=== PATIENT | male | born 1970 | race Two or more races ===

== ENCOUNTER → 2016-08-05 | Outpatient (REF) | payer BC ==
[2016-08-05 15:27] LABS: FOLATE > 24.0 NG/ML (>5.4); VITAMIN B12 LEVEL 496 PG/ML (247-911)
== END ==
LOC: M LABNEURO 13:10
PROVIDERS: ATTEND Psychiatry & Neurology Neurology
DX: G43.909 Migraine, unspecified, not intractable, without status migrainosus (principal); Z11.59 Encounter for screening for other viral diseases; R20.9 Unspecified disturbances of skin sensation; Z13.29 Encounter for screening for other suspected endocrine disorder; E55.9 Vitamin D deficiency, unspecified; Z13.0 Encounter for screening for diseases of the blood and blood-forming organs and certain disorders involving the immune mechanism

== ENCOUNTER → 2016-08-24 | Outpatient (REF) | payer BC | LOC: M LAB REF 12:17 | PROVIDERS: ATTEND Internal Medicine | DX: G52.0 Disorders of olfactory nerve (principal) ==

== ENCOUNTER → 2017-03-16 | Outpatient (REF) | payer BC | LOC: M LAB REF 13:26 | PROVIDERS: ATTEND Internal Medicine | DX: G52.0 Disorders of olfactory nerve (principal) ==

== ENCOUNTER → 2019-06-12 | Outpatient (REF) | payer BC | LOC: M LAB REF 17:31 | PROVIDERS: ATTEND Internal Medicine | DX: J02.9 Acute pharyngitis, unspecified (principal) ==

== ENCOUNTER → 2020-08-07 | Outpatient (REF) | payer BC | LOC: M LAB REF 12:11 | PROVIDERS: ATTEND Internal Medicine | DX: K59.1 Functional diarrhea (principal) ==

== ENCOUNTER → 2020-09-18 | Outpatient (REF) | payer BC ==
[2020-09-18 17:35] LABS: RSV AMPLIFICATION NEGATIVE (NEGATIVE)
== END ==
LOC: M SFHCPLAZ 16:39
PROVIDERS: ATTEND Internal Medicine Infectious Disease
DX: R09.81 Nasal congestion (principal)

== ENCOUNTER → 2020-10-29 | Outpatient (REF) | payer BC ==
[2020-10-29 14:47] LABS: RSV AMPLIFICATION NEGATIVE (NEGATIVE)
== END ==
LOC: M SFHCPLAZ 13:41
PROVIDERS: ATTEND Internal Medicine Infectious Disease
DX: R09.81 Nasal congestion (principal)

== ENCOUNTER → 2021-01-29 | Outpatient (REF) | payer BC ==
[2021-01-29 12:31] LABS: LDH LACTATE DEHYDROGENASE 188 U/L (87-241); TOTAL PROTEIN 7.6 GM/DL (6.4-8.2)
[2021-01-30 10:38] LABS: ALBUMIN % 60.2 % (55.8-66.1); ALPHA-1-GLOBULIN % 3.7 % (2.9-4.9); BETA-1-GLOBULINS % 5.8 % (4.7-7.2); BETA-2-GLOBULINS % 5.6 % (3.2-6.5); GAMMA GLOBULIN % 14.7 % (11.1-18.8)
[2021-01-30 10:39] LABS: ALBUMIN 4.58 GM/DL (3.29-5.55); ALPHA-1-GLOBULINS 0.28 GM/DL (0.17-0.41); ALPHA-2-GLOBULINS 0.76 GM/DL (0.42-0.99); BETA-1-GLOBULINS 0.44 GM/DL (0.28-0.60); BETA-2-GLOBULINS 0.43 GM/DL (0.19-0.55); GAMMA GLOBULINS 1.12 GM/DL (0.65-1.58)
[2021-02-18 17:10] LABS: HCG SERUM TUMOR MARKER QUANT < 1 mIU/mL (0-3)
== END ==
LOC: M LAB REF 11:20
PROVIDERS: ATTEND Internal Medicine
DX: D38.3 Neoplasm of uncertain behavior of mediastinum (principal); R91.8 Other nonspecific abnormal finding of lung field

== ENCOUNTER → 2021-02-02 | Outpatient (CLI) | payer BC ==
--- NOTE | 2021-02-03 13:16 | REP ---
INDICATION: DIAGNOSING 2 MEDIASTINAL MASSES. COMPARISON: None. TECHNIQUE: Following the injection of 8.89 mCi of FDG-18 scans were obtained from the head through the mid thighs. FINDINGS: The lobulated mass in the anterior mediastinum is markedly hypermetabolic with a maximum SUV of 16.96. No other area of abnormal uptake is identified. IMPRESSION: Abnormal examination with increased uptake in the lobulated mass in the anterior mediastinum consistent with tumor. No other area of abnormal uptake is identified. <Electronically signed by Dennys Selby > 02/03/21 [id number]
== END ==
LOC: M PLARAD 15:21
PROVIDERS: ATTEND Internal Medicine
DX: D38.3 Neoplasm of uncertain behavior of mediastinum (principal)
CPT/HCPCS: 78815; A9552

== ENCOUNTER 2021-05-06 18:34 | Observation (INO) | payer BC ==
[~2021-05-06] VITALS: Ht 182.9 cm; Wt 100.0 kg
[2021-05-06] MEDS ORDERED: ACETAMINOPHEN TAB 650MG DOSE (2X325MG) PO PRN (19:05)
[2021-05-06 19:36] VITALS: BP 123/72
[2021-05-06] MEDS ORDERED: OMEP1CAP73 PO (20:11)
[2021-05-06] MEDS ORDERED: BACT800T5 PO (20:11)
[2021-05-06] MEDS ORDERED: ACYC1TAB PO (20:11)
[2021-05-06] MEDS ORDERED: RAMI1CAP22 PO (20:11)
[2021-05-06] MEDS ORDERED: B-12100021 PO (20:11)
[2021-05-06] MEDS ORDERED: GABA-282 PO (20:11)
[2021-05-06] MEDS ORDERED: SENN-80 PO (20:11)
[2021-05-06] MEDS ORDERED: ONDA-84 PO (20:11)
[2021-05-06] MEDS ORDERED: ATOR1TAB19 PO (20:11)
[2021-05-06 20:12] LABS: HEMATOCRIT 31.7 % (42.0-52.0); HEMOGLOBIN 10.5 g/dl (13.5-17.5); MEAN CORPUSCULAR HEMOGLOBIN 30.1 pg (27.0-33.0); MEAN CORPUSCULAR HGB CONC 33.1 g/dl (32.0-36.5); MEAN CORPUSCULAR VOLUME 90.8 fl (80.0-96.0); PLATELET COUNT, AUTOMATED 248 10^3/uL (150-450); RED BLOOD COUNT 3.49 10^6/uL (4.30-6.10); WHITE BLOOD COUNT 12.3 10^3/uL (4.0-10.0)
[2021-05-06] MEDS ORDERED: HOME MED LIST COMPLETE! XX SCH (20:25)
[2021-05-06 20:26] LABS: BASOPHILS 2 % (0-1); LYMPHOCYTES 3 % (16-44); NEUTROPHILS 95 % (28-66); TOXIC VACUOLATION 1+
[2021-05-06 20:30] LABS: PLATELET ESTIMATE NORMAL (NORMAL)
[2021-05-06 20:37] LABS: ALBUMIN 3.4 GM/DL (3.2-5.2); ALT/SGPT 59 U/L (12-78); BILIRUBIN,TOTAL 0.4 MG/DL (0.2-1.0); BLOOD UREA NITROGEN 20 MG/DL (7-18); CALCIUM LEVEL 8.8 MG/DL (8.5-10.1); CARBON DIOXIDE LEVEL 25 MEQ/L (21-32); CHLORIDE LEVEL 101 MEQ/L (98-107); GLOMERULAR FILTRATION RATE > 60.0 (>56); GLUCOSE, FASTING 106 MG/DL (70-100); POTASSIUM SERUM 3.8 MEQ/L (3.5-5.1); SODIUM LEVEL 131 MEQ/L (136-145); TOTAL PROTEIN 6.9 GM/DL (6.4-8.2)
[2021-05-06 20:56] LABS: APPEARANCE, URINE CLEAR (CLEAR); BACTERIA, URINE AUTO NEGATIVE (NEGATIVE); BILIRUBIN, URINE AUTO NEGATIVE (NEGATIVE); BLOOD, URINE BLOOD NEGATIVE (NEGATIVE); COLOR, URINE YELLOW (YELLOW); GLUCOSE, URINE (UA) AUTO 1+ mg/dL (NEGATIVE); KETONE, URINE AUTO TRACE mg/dL (NEGATIVE); LEUKOCYTE ESTERASE, URINE AUTO NEGATIVE (NEGATIVE); MUCUS, URINE SMALL (NEGATIVE); NITRITE, URINE AUTO NEGATIVE (NEGATIVE); PROTEIN, URINE AUTO NEGATIVE (NEGATIVE); RBC, URINE AUTO 1 /HPF (0-3); SPECIFIC GRAVITY URINE AUTO 1.024 (1.002-1.035); SQUAMOUS EPITHELIAL CELL UR AU 0 /HPF (0-6); UROBILINOGEN, URINE AUTO 0.2 mg/dL (0.0-2.0); WBC, URINE AUTO 3 /HPF (0-3)
[2021-05-06] MEDS ORDERED: ALPRAZolam 0.25 MG TAB PO SCH (21:00)
[2021-05-06] MEDS: GABAPENTIN 300 MG CAP PO SCH (21:00)
[2021-05-06] MEDS ORDERED: SENNA 8.6 MG TAB (SENOKOT) PO SCH (21:00)
[2021-05-06] MEDS: ACYCLOVIR 200 MG CAPSULE PO SCH (21:00)
[2021-05-06] MEDS: PIPERACILLIN/TAZOBACTAM SOD 3.375 GM in D5W MINI-BAG PLUS 50 ML IV SCH (22:57)
[2021-05-06] MEDS: D5W/0.45% SODIUM CHLORIDE 1,000 ML IV SCH (22:58)
[2021-05-07] MEDS: PIPERACILLIN/TAZOBACTAM SOD 3.375 GM in D5W MINI-BAG PLUS 50 ML IV SCH ×2 (03:16→08:52)
[2021-05-07 07:49] VITALS: BP 113/75
[2021-05-07 08:18] LABS: HEMATOCRIT 28.5 % (42.0-52.0); HEMOGLOBIN 9.7 g/dl (13.5-17.5); MEAN CORPUSCULAR HEMOGLOBIN 30.1 pg (27.0-33.0); MEAN CORPUSCULAR VOLUME 88.5 fl (80.0-96.0); PLATELET COUNT, AUTOMATED 219 10^3/uL (150-450); RED BLOOD COUNT 3.22 10^6/uL (4.30-6.10); WHITE BLOOD COUNT 3.9 10^3/uL (4.0-10.0)
[2021-05-07] MEDS: GABAPENTIN 300 MG CAP PO SCH (08:51)
[2021-05-07] MEDS: ACYCLOVIR 200 MG CAPSULE PO SCH (08:52)
[2021-05-07 08:55] LABS: ALBUMIN 3.2 GM/DL (3.2-5.2); ALT/SGPT 50 U/L (12-78); BILIRUBIN,TOTAL 0.7 MG/DL (0.2-1.0); BLOOD UREA NITROGEN 13 MG/DL (7-18); CALCIUM LEVEL 8.7 MG/DL (8.5-10.1); CARBON DIOXIDE LEVEL 24 MEQ/L (21-32); CHLORIDE LEVEL 101 MEQ/L (98-107); CREATININE FOR GFR 0.61 MG/DL (0.70-1.30); GLOMERULAR FILTRATION RATE > 60.0 (>56); GLUCOSE, FASTING 101 MG/DL (70-100); POTASSIUM SERUM 3.8 MEQ/L (3.5-5.1); SODIUM LEVEL 134 MEQ/L (136-145); TOTAL PROTEIN 6.7 GM/DL (6.4-8.2)
[2021-05-07] MEDS ORDERED: ATORVASTATIN 10 MG TAB PO SCH (09:00)
[2021-05-07] MEDS ORDERED: ramipriL 1.25 MG CAP PO SCH (09:00)
[2021-05-07] MEDS ORDERED: OMEPRAZOLE 20MG CAP PO SCH (09:00)
[2021-05-07] MEDS ORDERED: ENOXAPARIN 40MG/0.4ML SYRINGE (J1650 PER 10MG) SC SCH (09:00)
[2021-05-07 09:04] LABS: PERCENT SATURATION 70.9 % (19.7-50.0)
[2021-05-07 10:14] LABS: BASO # 0.1 10^3/uL (0.0-0.2); BASO % 1.8 % (0.0-1.0); EOS % 0.5 % (0.0-3.0); LYMPH # 0.2 10^3/uL (1.5-5.0); LYMPH % 4.8 % (24.0-44.0); MONO # 0.1 10^3/uL (0.0-0.8); MONO % 2.5 % (2.0-8.0); NEUTROPHILS # 2.4 10^3/uL (1.5-8.5); NEUTROPHILS % 61.1 % (36.0-66.0)
[2021-05-07] MEDS: D5W/0.45% SODIUM CHLORIDE 1,000 ML IV SCH (10:58)
[2021-05-07] MEDS ORDERED: LEVO750T13 PO (12:00)
[2021-05-07 22:43] LABS: MAGNESIUM LEVEL 1.9 MG/DL (1.7-2.2)
== END 2021-05-07 12:50 | disposition home or self-care (01) ==
LOC: INTOOBSV 18:50 → M MS5PR 18:50
PROVIDERS: ADMIT Internal Medicine Infectious Disease; ATTEND Internal Medicine Infectious Disease
DX: D70.9 Neutropenia, unspecified (principal); E86.0 Dehydration; R79.89 Other specified abnormal findings of blood chemistry; R00.0 Tachycardia, unspecified; I10 Essential (primary) hypertension; E78.5 Hyperlipidemia, unspecified; C85.20 Mediastinal (thymic) large B-cell lymphoma, unspecified site; R10.9 Unspecified abdominal pain; R50.9 Fever, unspecified; R19.7 Diarrhea, unspecified; D64.9 Anemia, unspecified; G62.9 Polyneuropathy, unspecified; Z79.899 Other long term (current) drug therapy; Z79.2 Long term (current) use of antibiotics
CPT/HCPCS: 36415; 71046; 80053; 81001; 82728; 83550; 83735; 84145; 85025; 85027; 87040; 87086; 87798; 96372; 96374; 96376; J1650; J2543

== ENCOUNTER → 2021-05-09 | Outpatient (REF) | payer BC ==
[~2021-05-09] MED LIST: ACYC1TAB PO; ATOR1TAB19 PO; B-12100021 PO; BACT800T5 PO; GABA-282 PO; LEVO750T13 PO; OMEP1CAP73 PO; ONDA-84 PO; RAMI1CAP22 PO; SENN-80 PO
== END ==
LOC: M SFHCPLAZ 13:51
PROVIDERS: ATTEND Internal Medicine Infectious Disease
DX: D70.9 Neutropenia, unspecified (principal); R50.81 Fever presenting with conditions classified elsewhere

== ENCOUNTER 2021-05-11 13:45 | Outpatient (CLI) | payer BC ==
[~2021-05-11] VITALS: Ht 182.9 cm; Wt 94.0 kg
[~2021-05-11 13:45] MED LIST changes: +ALBUTEROL SULFATE 2.5 MG/0.5 ML INH NEB SOLN INH PRN; +EPINEPHrine INJ 1 MG/ML 1ML AMP IM PRN; +diphenhydrAMINE 50MG/ML VIAL (J1200) IV PRN; +methylPREDNISolone 125MG 2ML VIAL IV PRN
[2021-05-11 13:55] VITALS: BP 157/77
[2021-05-11] MEDS ORDERED: ALBUTEROL 90 MCG/ACT 8GM HFA INHALER INH PRN (14:15)
[2021-05-11] MEDS ORDERED: NS 1,000 ML IV SCH (14:15)
[2021-05-11] MEDS ORDERED: TIXAGEVIMAB/CILGAVIMAB (EVUSHELD) 150MG-150MG 3ML VIAL (EUA) IM ONE (14:15)
[2021-05-11 14:55] VITALS: BP 144/87
== END 2021-05-11 14:55 | disposition home or self-care (01) ==
LOC: M INFU 13:45
PROVIDERS: ATTEND Internal Medicine Infectious Disease
DX: C83.30 Diffuse large B-cell lymphoma, unspecified site (principal)

== ENCOUNTER → 2021-05-11 | Outpatient (CLI) | payer BC ==
[2021-05-11 13:45] LABS: HEMATOCRIT 30.5 % (42.0-52.0); MEAN CORPUSCULAR HGB CONC 32.8 g/dl (32.0-36.5); MEAN CORPUSCULAR VOLUME 91.6 fl (80.0-96.0); PLATELET COUNT, AUTOMATED 117 10^3/uL (150-450); RED BLOOD COUNT 3.33 10^6/uL (4.30-6.10); WHITE BLOOD COUNT 2.1 10^3/uL (4.0-10.0)
[2021-05-11 14:21] LABS: ATYPICAL LYMPH 6 % (0-5); EOSINOPHILS 1 % (0-3); LYMPHOCYTES 33 % (16-44); MONOCYTES 39 % (0-5); NEUTROPHILS 16 % (28-66)
[2021-05-11 14:22] LABS: ALBUMIN 3.6 GM/DL (3.2-5.2); ALT/SGPT 36 U/L (12-78); BILIRUBIN,TOTAL 0.3 MG/DL (0.2-1.0); BLOOD UREA NITROGEN 12 MG/DL (7-18); CALCIUM LEVEL 9.7 MG/DL (8.5-10.1); CARBON DIOXIDE LEVEL 28 MEQ/L (21-32); CHLORIDE LEVEL 104 MEQ/L (98-107); CREATININE FOR GFR 0.67 MG/DL (0.70-1.30); GLOMERULAR FILTRATION RATE > 60.0 (>56); GLUCOSE, FASTING 98 MG/DL (70-100); MAGNESIUM LEVEL 2.3 MG/DL (1.8-2.4); OVALOCYTES 2+; POTASSIUM SERUM 4.5 MEQ/L (3.5-5.1); SODIUM LEVEL 139 MEQ/L (136-145); TEAR DROP CELLS 1+; TOTAL PROTEIN 6.8 GM/DL (6.4-8.2)
[2021-05-11 14:24] LABS: PLATELET ESTIMATE DECREASED (NORMAL)
== END ==
LOC: M PLALAB 08:42
DX: C85.80 Other specified types of non-Hodgkin lymphoma, unspecified site (principal)

== ENCOUNTER → 2021-05-13 | Outpatient (CLI) | payer BC ==
[~2021-05-13] MED LIST changes: -ALBUTEROL SULFATE 2.5 MG/0.5 ML INH NEB SOLN INH PRN; -EPINEPHrine INJ 1 MG/ML 1ML AMP IM PRN; -diphenhydrAMINE 50MG/ML VIAL (J1200) IV PRN; -methylPREDNISolone 125MG 2ML VIAL IV PRN
[2021-05-13 09:57] LABS: HEMATOCRIT 31.9 % (42.0-52.0); HEMOGLOBIN 10.4 g/dl (13.5-17.5); MEAN CORPUSCULAR HEMOGLOBIN 30.7 pg (27.0-33.0); MEAN CORPUSCULAR HGB CONC 32.6 g/dl (32.0-36.5); MEAN CORPUSCULAR VOLUME 94.1 fl (80.0-96.0); RED BLOOD COUNT 3.39 10^6/uL (4.30-6.10); WHITE BLOOD COUNT 4.5 10^3/uL (4.0-10.0)
[2021-05-13 10:17] LABS: PLATELET COUNT, AUTOMATED 70 10^3/uL (150-450)
[2021-05-13 10:21] LABS: ATYPICAL LYMPH 2 % (0-5); BASOPHILS 1 % (0-1); EOSINOPHILS 1 % (0-3); LYMPHOCYTES 16 % (16-44); METAMYELOCYTES 1 % (0-0); MONOCYTES 14 % (0-5); MYELOCYTES 1 % (0-0); NEUTROPHILS 55 % (28-66); PLATELET ESTIMATE DECREASED (NORMAL)
[2021-05-13 10:22] LABS: TEAR DROP CELLS 1+
[2021-05-13 10:23] LABS: OVALOCYTES 1+
== END ==
LOC: M LAB 09:25
PROVIDERS: ATTEND Internal Medicine Infectious Disease
DX: D70.9 Neutropenia, unspecified (principal)

== ENCOUNTER → 2021-05-28 | Outpatient (CLI) | payer BC ==
[2021-05-28 11:26] LABS: HEMATOCRIT 31.5 % (42.0-52.0); HEMOGLOBIN 10.8 g/dl (13.5-17.5); MEAN CORPUSCULAR HEMOGLOBIN 32.9 pg (27.0-33.0); MEAN CORPUSCULAR HGB CONC 34.3 g/dl (32.0-36.5); PLATELET COUNT, AUTOMATED 367 10^3/uL (150-450); RED BLOOD COUNT 3.28 10^6/uL (4.30-6.10); WHITE BLOOD COUNT 3.6 10^3/uL (4.0-10.0)
[2021-05-28 12:16] LABS: ALT/SGPT 48 U/L (12-78); BILIRUBIN,TOTAL 0.3 MG/DL (0.2-1.0); BLOOD UREA NITROGEN 17 MG/DL (7-18); CARBON DIOXIDE LEVEL 31 MEQ/L (21-32); CHLORIDE LEVEL 102 MEQ/L (98-107); CREATININE FOR GFR 0.66 MG/DL (0.70-1.30); GLOMERULAR FILTRATION RATE > 60.0 (>56); GLUCOSE, FASTING 105 MG/DL (70-100); POTASSIUM SERUM 4.4 MEQ/L (3.5-5.1); SODIUM LEVEL 137 MEQ/L (136-145); TOTAL PROTEIN 7.1 GM/DL (6.4-8.2)
[2021-05-28 14:16] LABS: ANISOCYTOSIS 2+; ATYPICAL LYMPH 1 % (0-5); BASOPHILS 2 % (0-1); EOSINOPHILS 3 % (0-3); LYMPHOCYTES 10 % (16-44); MONOCYTES 2 % (0-5); NEUTROPHILS 81 % (28-66); PLATELET ESTIMATE NORMAL (NORMAL)
[2021-05-28 14:17] LABS: TEAR DROP CELLS 1+
== END ==
LOC: M WUC 08:35
DX: C85.80 Other specified types of non-Hodgkin lymphoma, unspecified site (principal)

== ENCOUNTER → 2021-06-01 | Outpatient (CLI) | payer BC ==
[2021-06-01 16:15] LABS: ALBUMIN 3.8 GM/DL (3.2-5.2); ALT/SGPT 44 U/L (12-78); BILIRUBIN,TOTAL 0.1 MG/DL (0.2-1.0); BLOOD UREA NITROGEN 16 MG/DL (7-18); CALCIUM LEVEL 9.2 MG/DL (8.5-10.1); CARBON DIOXIDE LEVEL 30 MEQ/L (21-32); CHLORIDE LEVEL 103 MEQ/L (98-107); GLOMERULAR FILTRATION RATE > 60.0 (>56); GLUCOSE, FASTING 115 MG/DL (70-100); MAGNESIUM LEVEL 1.9 MG/DL (1.8-2.4); POTASSIUM SERUM 3.9 MEQ/L (3.5-5.1); SODIUM LEVEL 139 MEQ/L (136-145)
[2021-06-01 16:16] LABS: HEMATOCRIT 29.6 % (42.0-52.0); HEMOGLOBIN 9.6 g/dl (13.5-17.5); MEAN CORPUSCULAR HEMOGLOBIN 31.9 pg (27.0-33.0); MEAN CORPUSCULAR HGB CONC 32.4 g/dl (32.0-36.5); MEAN CORPUSCULAR VOLUME 98.3 fl (80.0-96.0); PLATELET COUNT, AUTOMATED 150 10^3/uL (150-450); RED BLOOD COUNT 3.01 10^6/uL (4.30-6.10); WHITE BLOOD COUNT 4.2 10^3/uL (4.0-10.0)
[2021-06-01 20:21] LABS: ATYPICAL LYMPH 8 % (0-5); BASOPHILS 7 % (0-1); EOSINOPHILS 3 % (0-3); LYMPHOCYTES 36 % (16-44); MONOCYTES 17 % (0-5); MYELOCYTES 2 % (0-0); NEUTROPHILS 15 % (28-66)
[2021-06-01 20:22] LABS: ANISOCYTOSIS 1+; PLATELET ESTIMATE NORMAL (NORMAL)
== END ==
LOC: M WUC 10:39
DX: C85.80 Other specified types of non-Hodgkin lymphoma, unspecified site (principal)

== ENCOUNTER 2021-06-03 14:34 | Outpatient (CLI) | payer BC ==
[~2021-06-03] VITALS: Ht 182.9 cm; Wt 94.0 kg
[2021-06-03 14:25] VITALS: BP 141/93
[~2021-06-03 14:34] MED LIST changes: +ALBUTEROL 90 MCG/ACT 8GM HFA INHALER INH PRN; +ALBUTEROL SULFATE 2.5 MG/0.5 ML INH NEB SOLN INH PRN; +EPINEPHrine INJ 1 MG/ML 1ML AMP IM PRN; +NS 1,000 ML IV SCH; +TIXAGEVIMAB/CILGAVIMAB (EVUSHELD) 150MG-150MG 3ML VIAL (EUA) IM NO SITE ONE; +diphenhydrAMINE 50MG/ML VIAL (J1200) IV PRN; +methylPREDNISolone 125MG 2ML VIAL IV PRN
[2021-06-03 15:45] VITALS: BP 138/93
== END 2021-06-03 15:45 | disposition home or self-care (01) ==
LOC: M INFU 14:34
PROVIDERS: ATTEND Internal Medicine Infectious Disease
DX: C85.80 Other specified types of non-Hodgkin lymphoma, unspecified site (principal)

== ENCOUNTER → 2021-06-22 | Outpatient (CLI) | payer BC ==
[~2021-06-22] MED LIST changes: -ALBUTEROL 90 MCG/ACT 8GM HFA INHALER INH PRN; -ALBUTEROL SULFATE 2.5 MG/0.5 ML INH NEB SOLN INH PRN; -EPINEPHrine INJ 1 MG/ML 1ML AMP IM PRN; -NS 1,000 ML IV SCH; -TIXAGEVIMAB/CILGAVIMAB (EVUSHELD) 150MG-150MG 3ML VIAL (EUA) IM NO SITE ONE; -diphenhydrAMINE 50MG/ML VIAL (J1200) IV PRN; -methylPREDNISolone 125MG 2ML VIAL IV PRN
[2021-06-22 12:31] LABS: HEMATOCRIT 28.1 % (42.0-52.0); HEMOGLOBIN 9.2 g/dl (13.5-17.5); MEAN CORPUSCULAR HEMOGLOBIN 33.8 pg (27.0-33.0); MEAN CORPUSCULAR HGB CONC 32.7 g/dl (32.0-36.5); MEAN CORPUSCULAR VOLUME 103.3 fl (80.0-96.0); PLATELET COUNT, AUTOMATED 167 10^3/uL (150-450); RED BLOOD COUNT 2.72 10^6/uL (4.30-6.10); WHITE BLOOD COUNT 4.2 10^3/uL (4.0-10.0)
[2021-06-22 13:06] LABS: ALT/SGPT 35 U/L (12-78); BILIRUBIN,TOTAL 0.2 MG/DL (0.2-1.0); BLOOD UREA NITROGEN 12 MG/DL (7-18); CALCIUM LEVEL 9.7 MG/DL (8.5-10.1); CARBON DIOXIDE LEVEL 31 MEQ/L (21-32); CHLORIDE LEVEL 106 MEQ/L (98-107); CREATININE FOR GFR 0.63 MG/DL (0.70-1.30); GLOMERULAR FILTRATION RATE > 60.0 (>56); GLUCOSE, FASTING 84 MG/DL (70-100); MAGNESIUM LEVEL 1.9 MG/DL (1.8-2.4); POTASSIUM SERUM 4.2 MEQ/L (3.5-5.1); SODIUM LEVEL 140 MEQ/L (136-145); TOTAL PROTEIN 6.9 GM/DL (6.4-8.2)
[2021-06-22 13:43] LABS: ATYPICAL LYMPH 3 % (0-5); BASOPHILS 1 % (0-1); EOSINOPHILS 3 % (0-3); LYMPHOCYTES 20 % (16-44); METAMYELOCYTES 2 % (0-0); MONOCYTES 22 % (0-5); MYELOCYTES 4 % (0-0); NEUTROPHILS 36 % (28-66); PROMYELOCYTES 1 % (0-0)
[2021-06-22 13:44] LABS: ANISOCYTOSIS 1+; PLATELET ESTIMATE NORMAL (NORMAL)
== END ==
LOC: M WUC 11:04
PROVIDERS: ATTEND Internal Medicine Hematology & Oncology
DX: C85.80 Other specified types of non-Hodgkin lymphoma, unspecified site (principal)

== ENCOUNTER → 2021-06-26 | Outpatient (CLI) | payer BC ==
[2021-06-26 13:10] LABS: HEMATOCRIT 31.2 % (42.0-52.0); HEMOGLOBIN 10.3 g/dl (13.5-17.5); RED BLOOD COUNT 3.03 10^6/uL (4.30-6.10); WHITE BLOOD COUNT 5.8 10^3/uL (4.0-10.0)
[2021-06-26 13:29] LABS: ALBUMIN 4.1 GM/DL (3.2-5.2); ALT/SGPT 39 U/L (12-78); BILIRUBIN,TOTAL 0.3 MG/DL (0.2-1.0); BLOOD UREA NITROGEN 17 MG/DL (7-18); CALCIUM LEVEL 9.3 MG/DL (8.5-10.1); CARBON DIOXIDE LEVEL 30 MEQ/L (21-32); CHLORIDE LEVEL 105 MEQ/L (98-107); CREATININE FOR GFR 0.76 MG/DL (0.70-1.30); GLOMERULAR FILTRATION RATE > 60.0 (>56); GLUCOSE, FASTING 80 MG/DL (70-100); MAGNESIUM LEVEL 1.9 MG/DL (1.8-2.4); POTASSIUM SERUM 4.3 MEQ/L (3.5-5.1); SODIUM LEVEL 139 MEQ/L (136-145); TOTAL PROTEIN 7.4 GM/DL (6.4-8.2)
[2021-06-26 13:59] LABS: PLATELET COUNT, AUTOMATED 69 10^3/uL (150-450)
[2021-06-26 14:03] LABS: ANISOCYTOSIS 1+; ATYPICAL LYMPH 1 % (0-5); BASOPHILS 1 % (0-1); EOSINOPHILS 3 % (0-3); LYMPHOCYTES 17 % (16-44); MONOCYTES 10 % (0-5); NEUTROPHILS 66 % (28-66); PLATELET ESTIMATE DECREASED (NORMAL); POIKILOCYTOSIS 1+
[2021-06-26 14:04] LABS: OVALOCYTES 1+
== END ==
LOC: M LAB 11:31
DX: C85.80 Other specified types of non-Hodgkin lymphoma, unspecified site (principal)

== ENCOUNTER → 2021-10-14 | Outpatient (CLI) | payer BC | LOC: M WUC 10:12 | PROVIDERS: ATTEND Internal Medicine Infectious Disease | DX: D49.89 Neoplasm of unspecified behavior of other specified sites (principal); Z79.899 Other long term (current) drug therapy ==

== ENCOUNTER → 2022-01-11 | Outpatient (REF) | payer BC ==
[~2022-01-11] MED LIST changes: +LEVO1TAB40 PO; -LEVO750T13 PO
== END ==
LOC: M LAB REF 16:29
PROVIDERS: ATTEND Internal Medicine
DX: C85.80 Other specified types of non-Hodgkin lymphoma, unspecified site (principal)

== ENCOUNTER → 2022-07-26 | Outpatient (CLI) | payer BC ==
[~2022-07-26] MED LIST changes: +GASTROGRAFIN SOLUTION 30ML As Ordered ONE; +ISOVUE-370 76% 100ML VIAL As Ordered ONE; +SENN-186 PO; -SENN-80 PO
== END ==
LOC: M RAD 16:16
PROVIDERS: ATTEND Internal Medicine Hematology & Oncology
DX: Z08 Encounter for follow-up examination after completed treatment for malignant neoplasm (principal); Z85.79 Personal history of other malignant neoplasms of lymphoid, hematopoietic and related tissues; R22.2 Localized swelling, mass and lump, trunk
CPT/HCPCS: 71260; 74177; Q9963; Q9967

== ENCOUNTER → 2022-07-27 | Outpatient (REF) | payer BC ==
[~2022-07-27] MED LIST changes: -GASTROGRAFIN SOLUTION 30ML As Ordered ONE; -ISOVUE-370 76% 100ML VIAL As Ordered ONE
== END ==
LOC: M LAB REF 16:38
PROVIDERS: ATTEND Internal Medicine
DX: C85.80 Other specified types of non-Hodgkin lymphoma, unspecified site (principal)

== ENCOUNTER → 2022-08-31 | Outpatient (REF) | payer BC | LOC: M LAB REF 10:12 | PROVIDERS: ATTEND Internal Medicine Gastroenterology | DX: K59.1 Functional diarrhea (principal); R14.0 Abdominal distension (gaseous); E73.9 Lactose intolerance, unspecified; K44.9 Diaphragmatic hernia without obstruction or gangrene; R12 Heartburn; K21.9 Gastro-esophageal reflux disease without esophagitis ==

== ENCOUNTER → 2022-10-20 | Outpatient (CLI) | payer BC ==
[2022-10-20 13:46] LABS: BASO # 0.1 10^3/uL (0.0-0.2); BASO % 0.9 % (0.0-1.0); EOS # 0.2 10^3/uL (0.0-0.5); EOS % 2.5 % (0.0-3.0); HEMOGLOBIN 14.3 g/dl (13.5-17.5); LYMPH # 1.6 10^3/uL (1.5-5.0); LYMPH % 24.9 % (24.0-44.0); MEAN CORPUSCULAR HEMOGLOBIN 30.8 pg (27.0-33.0); MEAN CORPUSCULAR HGB CONC 32.5 g/dl (32.0-36.5); MEAN CORPUSCULAR VOLUME 94.6 fl (80.0-96.0); MONO # 0.6 10^3/uL (0.0-0.8); MONO % 8.9 % (2.0-8.0); NEUTROPHILS % 62.6 % (36.0-66.0); PLATELET COUNT, AUTOMATED 187 10^3/uL (150-450); RED BLOOD COUNT 4.65 10^6/uL (4.30-6.10); WHITE BLOOD COUNT 6.4 10^3/uL (4.0-10.0)
[2022-10-20 14:09] LABS: LDH LACTATE DEHYDROGENASE 145 U/L (120-246)
[2022-10-20 14:14] LABS: ALBUMIN 4.1 G/DL (3.2-5.2); ALKALINE PHOSPHATASE 101 U/L (46-116); ALT/SGPT 27 U/L (7.0-40); AST/SGOT 13 U/L (<34); BILIRUBIN,TOTAL 0.7 MG/DL (0.3-1.2); BLOOD UREA NITROGEN 19 MG/DL (9-23); CALCIUM LEVEL 9.8 MG/DL (8.5-10.1); CARBON DIOXIDE LEVEL 30 MMOL/L (20-31); CHLORIDE LEVEL 105 MMOL/L (98-107); CHOLESTEROL LEVEL 125 MG/DL (<200); CHOLESTEROL RISK RATIO 2.28 (<5); CREATININE FOR GFR 0.74 MG/DL (0.70-1.30); GLOMERULAR FILTRATION RATE > 60.0 (>56); GLUCOSE, FASTING 72 MG/DL (60-100); HDL CHOLESTEROL 54.8 MG/DL (>40); NON-HDL-C 70.2 MG/DL; POTASSIUM SERUM 4.3 MMOL/L (3.5-5.1); SODIUM LEVEL 142 MMOL/L (136-145); TOTAL PROTEIN 6.8 G/DL (5.7-8.2); TRIGLYCERIDES LEVEL 76 MG/DL (<150)
== END ==
LOC: M PLALAB 11:48
PROVIDERS: ATTEND Internal Medicine Hematology & Oncology
DX: C85.80 Other specified types of non-Hodgkin lymphoma, unspecified site (principal)

== ENCOUNTER → 2023-04-04 | Outpatient (CLI) | payer BC ==
[2023-04-04 16:04] LABS: BASO # 0.1 10^3/uL (0.0-0.2); BASO % 0.9 % (0.0-1.0); EOS # 0.2 10^3/uL (0.0-0.5); EOS % 2.3 % (0.0-3.0); HEMATOCRIT 46.2 % (42.0-52.0); HEMOGLOBIN 15.3 g/dl (13.5-17.5); LYMPH # 2.4 10^3/uL (1.5-5.0); LYMPH % 34.1 % (24.0-44.0); MEAN CORPUSCULAR HEMOGLOBIN 30.8 pg (27.0-33.0); MEAN CORPUSCULAR HGB CONC 33.1 g/dl (32.0-36.5); MEAN CORPUSCULAR VOLUME 93.1 fl (80.0-96.0); MONO # 0.6 10^3/uL (0.0-0.8); MONO % 8.8 % (2.0-8.0); NEUTROPHILS # 3.8 10^3/uL (1.5-8.5); NEUTROPHILS % 53.8 % (36.0-66.0); PLATELET COUNT, AUTOMATED 208 10^3/uL (150-450); RED BLOOD COUNT 4.96 10^6/uL (4.30-6.10)
[2023-04-04 16:08] LABS: ERYTHROCYTE SEDIMENTATION RATE 10 mm/hr (0-20)
[2023-04-04 16:20] LABS: C REACTIVE PROTEIN QUANTITATIV < 0.40 MG/DL (<1.0)
[2023-04-04 16:24] LABS: RHEUMATOID FACTOR QUANT < 3.5 IU/ML (<14)
== END ==
LOC: M PLALAB 14:13
PROVIDERS: ATTEND Orthopaedic Surgery
DX: M79.671 Pain in right foot (principal)

== ENCOUNTER → 2023-04-21 | Outpatient (REF) | payer BC ==
[2023-04-21 18:05] LABS: LDH LACTATE DEHYDROGENASE 161 U/L (120-246)
[2023-04-21 18:06] LABS: ALBUMIN 4.3 G/DL (3.2-5.2); ALKALINE PHOSPHATASE 118 U/L (46-116); ALT/SGPT 29 U/L (7.0-40); AST/SGOT 21 U/L (<34); BILIRUBIN,TOTAL 0.5 MG/DL (0.3-1.2); BLOOD UREA NITROGEN 14 MG/DL (9-23); CALCIUM LEVEL 9.7 MG/DL (8.5-10.1); CARBON DIOXIDE LEVEL 32 MMOL/L (20-31); CHLORIDE LEVEL 105 MMOL/L (98-107); CREATININE FOR GFR 0.69 MG/DL (0.70-1.30); GLOMERULAR FILTRATION RATE > 60.0 (>56); GLUCOSE, FASTING 83 MG/DL (60-100); POTASSIUM SERUM 4.6 MMOL/L (3.5-5.1); SODIUM LEVEL 140 MMOL/L (136-145); TOTAL PROTEIN 7.1 G/DL (5.7-8.2)
== END ==
LOC: M LABWUC 16:50
PROVIDERS: ATTEND Internal Medicine Hematology & Oncology
DX: C85.80 Other specified types of non-Hodgkin lymphoma, unspecified site (principal)

== ENCOUNTER → 2023-07-26 | Outpatient (CLI) | payer BC ==
[~2023-07-26] MED LIST changes: +GASTROGRAFIN SOLUTION 30ML As Ordered ONE; +ISOVUE-370 76% 100ML VIAL As Ordered ONE
== END ==
LOC: M RAD 16:18
PROVIDERS: ATTEND Internal Medicine Hematology & Oncology
DX: C85.90 Non-Hodgkin lymphoma, unspecified, unspecified site (principal); K57.30 Diverticulosis of large intestine without perforation or abscess without bleeding
CPT/HCPCS: 71260; 74177; Q9963; Q9967

== ENCOUNTER → 2024-02-06 | Outpatient (REF) | payer BC ==
[~2024-02-06] MED LIST changes: +GABA-1172 PO; -GABA-282 PO; -GASTROGRAFIN SOLUTION 30ML As Ordered ONE; -ISOVUE-370 76% 100ML VIAL As Ordered ONE; -RAMI1CAP22 PO; +RAMI2.5C42 PO
== END ==
LOC: M LAB REF 13:01
PROVIDERS: ATTEND Internal Medicine
DX: C85.80 Other specified types of non-Hodgkin lymphoma, unspecified site (principal)

== ENCOUNTER → 2024-03-07 | Outpatient (CLI) | payer BC ==
[~2024-03-07] MED LIST changes: +ISOVUE-370 76% 100ML VIAL As Ordered ONE
== END ==
LOC: M RAD 13:20
PROVIDERS: ATTEND Internal Medicine
DX: R74.8 Abnormal levels of other serum enzymes (principal); C85.20 Mediastinal (thymic) large B-cell lymphoma, unspecified site
CPT/HCPCS: 74177; Q9967

== ENCOUNTER → 2024-03-07 | Outpatient (REF) | payer BC ==
[~2024-03-07] MED LIST changes: -ISOVUE-370 76% 100ML VIAL As Ordered ONE
== END ==
LOC: M LAB REF 12:23
PROVIDERS: ATTEND Internal Medicine
DX: Z13.89 Encounter for screening for other disorder (principal)

== ENCOUNTER → 2024-03-16 | Outpatient (CLI) | payer BC ==
[2024-03-16 18:09] LABS: ALBUMIN 4.3 G/DL (3.2-5.2); ALKALINE PHOSPHATASE 129 U/L (40-129); ALT/SGPT 34 U/L (7.0-40); AST/SGOT 23 U/L (<34); BILIRUBIN,TOTAL 0.6 MG/DL (0.3-1.2); BLOOD UREA NITROGEN 17 MG/DL (9-23); CALCIUM LEVEL 10.6 MG/DL (8.5-10.1); CARBON DIOXIDE LEVEL 28 MMOL/L (20-31); CHLORIDE LEVEL 104 MMOL/L (98-107); CREATININE FOR GFR 0.74 MG/DL (0.70-1.30); GLOMERULAR FILTRATION RATE > 60.0 (>56); GLUCOSE, FASTING 131 MG/DL (60-100); POTASSIUM SERUM 4.4 MMOL/L (3.5-5.1); SODIUM LEVEL 140 MMOL/L (136-145); TOTAL PROTEIN 8.1 G/DL (5.7-8.2)
== END ==
LOC: M PLALAB 16:33
PROVIDERS: ATTEND Internal Medicine Hematology & Oncology
DX: C85.80 Other specified types of non-Hodgkin lymphoma, unspecified site (principal)

== ENCOUNTER → 2024-04-20 | Outpatient (CLI) | payer BC | LOC: M RAD 10:21 | PROVIDERS: ATTEND Internal Medicine Hematology & Oncology | DX: C85.80 Other specified types of non-Hodgkin lymphoma, unspecified site (principal) | CPT/HCPCS: 78306; A9503 ==

== ENCOUNTER → 2024-10-09 | Outpatient (CLI) | payer BC ==
[~2024-10-09] MED LIST changes: +ACYC-438 PO; -ACYC1TAB PO
[2024-10-09 14:58] LABS: BASO # 0.1 10^3/uL (0.0-0.2); BASO % 1.1 % (0.0-1.0); EOS # 0.2 10^3/uL (0.0-0.5); EOS % 2.6 % (0.0-3.0); LYMPH # 2.2 10^3/uL (1.5-5.0); LYMPH % 31.8 % (24.0-44.0); MONO # 0.5 10^3/uL (0.0-0.8); MONO % 6.9 % (2.0-8.0); NEUTROPHILS # 4.0 10^3/uL (1.5-8.5); NEUTROPHILS % 57.2 % (36.0-66.0); PLATELET COUNT, AUTOMATED 240 10^3/uL (150-450)
[2024-10-09 15:19] LABS: LDH LACTATE DEHYDROGENASE 191 U/L (120-246)
[2024-10-09 15:20] LABS: ALT/SGPT 32 U/L (7.0-40); AST/SGOT 26 U/L (<34); CALCIUM LEVEL 10.4 MG/DL (8.5-10.1); CARBON DIOXIDE LEVEL 30 MMOL/L (20-31); CHLORIDE LEVEL 103 MMOL/L (98-107); CREATININE FOR GFR 0.78 MG/DL (0.70-1.30); GLOMERULAR FILTRATION RATE > 90.0 (>56); POTASSIUM SERUM 4.9 MMOL/L (3.5-5.1); SODIUM LEVEL 145 MMOL/L (136-145)
== END ==
LOC: M PLALAB 10:11
PROVIDERS: ATTEND Nurse Practitioner Adult Health
DX: C85.90 Non-Hodgkin lymphoma, unspecified, unspecified site (principal)

== ENCOUNTER → 2025-03-05 | Outpatient (CLI) | payer BC ==
[~2025-03-05] MED LIST changes: +ISOVUE-370 76% 100 ML VIAL As Ordered ONE
== END ==
LOC: M RAD 09:58
PROVIDERS: ATTEND Internal Medicine
DX: C85.10 Unspecified B-cell lymphoma, unspecified site (principal)
CPT/HCPCS: 74177; Q9967

== ENCOUNTER → 2025-03-11 | Outpatient (CLI) | payer BC ==
[~2025-03-11] MED LIST changes: -ISOVUE-370 76% 100 ML VIAL As Ordered ONE
== END ==
LOC: M RAD 15:35
PROVIDERS: ATTEND Internal Medicine
DX: N44.2 Benign cyst of testis (principal)